=== PATIENT | male | born 1940 | race Caucasian/White ===

== ENCOUNTER → 2017-08-29 | Outpatient (CLI) | payer OTHER ==
--- NOTE | 2017-08-29 16:42 | US ---
EXAMINATION TYPE: US venous doppler duplex LE BI DATE OF EXAM: 08/29/2017 1:21 PM COMPARISON: NONE CLINICAL HISTORY: 76-year-old male I73.9 PVD. Pt states bilateral leg swelling and redness/lump right medial ankle x 2-3 months, pt on blood thinners for heart valve issues SIDE PERFORMED: Bilateral TECHNIQUE: The lower extremity deep venous system is examined utilizing real time linear array sonog marylou with graded compression, doppler sonography and color-flow sonography. FINDINGS: VESSELS IMAGED: External Iliac Vein (EIV) Common Femoral Vein Deep Femoral Vein Greater Saphenous Vein * Femoral Vein Popliteal Vein Small Saphenous Vein * Proximal Calf Veins (* superficial vessels) Right Leg: Negative for DVT, no abnormality visualized at the medial right ankle Left Leg: Negative for DVT IMPRESSION: No evidence for DVT within the bilateral lower extremities imaged from the groin to the upper calves. Also, no specific abnormality seen at the medial aspect of the right ankle at the palpable site.
--- NOTE | 2017-09-06 10:13 | P.ARTDOP ---
Arterial Doppler LOWER EXTREMITY ARTERIAL DOPPLER: DATE OF SERVICE: 08/29/2017 Reason for study: Bilateral leg swelling and pain.. Doppler waveforms: Multiphasic bilaterally throughout. Pulse volume recording: []. Pressure gradients: None. Ankle-brachial indices: Greater than 1 bilaterally. Toe pressures: [] on the right, [] on the left Impression: Normal study.
== END | disposition home or self-care (01) ==
LOC: RADUSWWP 12:52
PROVIDERS: ATTEND Family Medicine
DX: I73.9 Peripheral vascular disease, unspecified (principal); I82.403 Acute embolism and thrombosis of unspecified deep veins of lower extremity, bilateral
CPT/HCPCS: 93922; 93970

== ENCOUNTER 2018-01-30 09:36 | Inpatient (IN) | payer OTHER, MEDICARE ==
[2018-01-30] MEDS ORDERED: IPRATROPIUM-ALBUTEROL 3 ML NEB INHALATION STA (10:08)
--- NOTE | 2018-01-30 10:15 | ED ---
General Adult HPI - General Source: patient, RN notes reviewed Mode of arrival: ambulatory Limitations: no limitations <Harry Burgess - Last Filed: 01/30/18 12:35> <Pradeep Escobar - Last Filed: 01/30/18 12:46> - General Chief complaint: Upper Respiratory Infection Stated complaint: cough, fever Time Seen by Provider: 01/30/18 10:02 - History of Present Illness Initial comments: This is a 77-year-old male presents emergency Department chief complaint of cough, shortness of breath. Patient states that his been sick last couple days as progressively getting worse last 24 hours. 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 Patient states she did call the office to advise him come emergency department secondary to his shortness of breath and fever. Patient states he had a temp of 104 last night. Patient states his cough is productive with brown sputum and states that he has some nasal congestion. He denies any chest pain or pain with deep inspiration. Denies any leg swelling. He states he did do an updraft yesterday states he does not have much improvement. (Harry Burgess) - Related Data Home Medications Medication Instructions Recorded Confirmed Budesonide-Formot 160-4.5 Mcg 2 puff INHALATION RT-BID 03/26/16 01/30/18 [Symbicort 160-4.5 Mcg Inhaler] Donepezil [Aricept] 5 mg PO BID 03/26/16 01/30/18 FLUoxetine HCL [PROzac] 20 mg PO BID 03/26/16 01/30/18 Cholecalciferol (Vitamin D3) 2,000 unit PO BID 01/30/18 01/30/18 [Vitamin D3] Ipratropium-Albuterol Nebulize 3 ml INHALATION RT-QID 01/30/18 01/30/18 [Duoneb 0.5 mg-3 mg/3 ml Soln] Metoprolol Succinate [Toprol Xl] 50 mg PO DAILY 01/30/18 01/30/18 Multivitamin [Men's Multi-Vitamin] 1 tab PO DAILY 01/30/18 01/30/18 predniSONE 10 mg PO DAILY 01/30/18 01/30/18 rOPINIRole HCL [Requip] 1 mg PO TID 01/30/18 01/30/18 Previous Rx's Medication Instructions Recorded Apixaban [Eliquis] 2.5 mg PO BID tablet 03/30/16 Atorvastatin [Lipitor] 80 mg PO HS #30 tab 03/30/16 Doxycycline Monohydrate [Monodox] 100 mg PO Q12HR #10 cap 03/30/16 Lisinopril [Zestril] 5 mg PO DAILY #30 tab 03/30/16 Pantoprazole [Protonix] 40 mg PO AC-CORINNAFST #30 tablet. 03/30/16 Allergies Allergy/AdvReac Type Severity Reaction Status Date / Time No Known Allergies Allergy Verified 01/30/18 10:15 Review of Systems ROS Other: All systems not noted in ROS Statement are negative. <Harry Burgess - Last Filed: 01/30/18 12:35> ROS Other: All systems not noted in ROS Statement are negative. <Pradeep Escobar - Last Filed: 01/30/18 12:46> ROS Statement: Those systems with pertinent positive or pertinent negative responses have been documented in the HPI. Past Medical History Past Medical History: Coronary Artery Disease (CAD), COPD, Dementia, Hearing Disorder / Deafness, Hypertension, Sleep Apnea/CPAP/BIPAP Additional Past Medical History / Comment(s): asbestos exposure, parkinsons, coronary artery disease with previous insertion of coronary stents, obstructive sleep apnea maintained on CPAP pressure 15 cm of water, dementia History of Any Multi-Drug Resistant Organisms: None Reported Past Surgical History: Heart Catheterization With Stent, Hernia Repair, Orthopedic Surgery Additional Past Surgical History / Comment(s): right knee Past Anesthesia/Blood Transfusion Reactions: No Reported Reaction Date of Last Stent Placement:: 2000 Past Psychological History: Anxiety, Depression Smoking Status: Former smoker Past Alcohol Use History: None Reported Past Drug Use History: None Reported - Past Family History Father Family Medical History: Diabetes Mellitus Additional Family Medical History / Comment(s): lung cancer Mother Family Medical History: CVA/TIA <Harry Burgess - Last Filed: 01/30/18 12:35> General Exam Limitations: no limitations General appearance: alert, in no apparent distress Head exam: Present: atraumatic, normocephalic, normal inspection Eye exam: Present: normal appearance, PERRL, EOMI. Absent: scleral icterus, conjunctival injection, periorbital swelling ENT exam: Present: normal exam, normal oropharynx, mucous membranes moist Neck exam: Present: normal inspection. Absent: tenderness, meningismus, lymphadenopathy Respiratory exam: Present: wheezes, decreased breath sounds, other (Pulse ox 90 on 4 L). Absent: normal lung sounds bilaterally, respiratory distress, rales, rhonchi, stridor Cardiovascular Exam: Present: regular rate, normal rhythm, normal heart sounds. Absent: systolic murmur, diastolic murmur, rubs, gallop, clicks Neurological exam: Present: alert, oriented X3, CN II-XII intact Skin exam: Present: warm, dry, intact, normal color. Absent: rash <Harry Burgess - Last Filed: 01/30/18 12:35> Vital Signs 01/30/18 01/30/18 01/30/18 09:57 10:48 10:57 Temperature 99.5 F Pulse Rate 94 74 82 Respiratory 18 18 Rate Blood Pressure 123/75 O2 Sat by Pulse 90 L Oximetry 01/30/18 12:36 Temperature 99.9 F H Pulse Rate 85 Respiratory 20 Rate Blood Pressure 126/62 O2 Sat by Pulse 91 L Oximetry EKG Findings - EKG Comments: EKG Findings:: 11:43 A. fib with a rate of 79 QRS 92 QT/QTC 372/426 <Harry Burgess - Last Filed: 01/30/18 12:35> Medical Decision Making - Lab Data Result diagrams: 01/30/18 10:33 01/30/18 10:33 <Harry Burgess - Last Filed: 01/30/18 12:35> - Lab Data Result diagrams: 01/30/18 10:33 01/30/18 10:33 <Pradeep Escobar - Last Filed: 01/30/18 12:46> - Medical Decision Making 77-year-old male presents from for shortness of breath. He's had a productive cough. CT shows pneumonia and also submental PE. Patient was given Eliquis 10 mg emergency department. He'll be continued on this dose inpatient. Patient will also be started on antibiotics (Harry Burgess) Patient reevaluated by myself, Dr. Escobar. Patient resting comfortable in bed. Decreased breath sounds throughout. I did review and agree with PA findings including all diagnostic interpretations and treatment plan. Computed tomography scan shows pneumonia however is equivocal for pulmonary embolism in the segmental region. Case was discussed in detail with Dr. Zayas, who will admit for this patient. Pulmonary will be placed on consult. Patient was given a additional dose of Eliquis until evaluated by pulmonary. (Pradeep Escobar) - Lab Data Lab Results 01/30/18 01/30/18 01/30/18 Range/Units 10:33 10:33 10:33 WBC 9.7 (3.8-10.6) k/uL RBC 4.66 (4.30-5.90) m/uL Hgb 13.2 (13.0-17.5) gm/dL Hct 40.0 (39.0-53.0) % MCV 85.8 (80.0-100.0) fL MCH 28.3 (25.0-35.0) pg MCHC 33.0 (31.0-37.0) g/dL RDW 14.5 (11.5-15.5) % Plt Count 167 (150-450) k/uL Neutrophils % 82 % Lymphocytes % 9 % Monocytes % 6 % Eosinophils % 0 % Basophils % 1 % Neutrophils # 7.9 H (1.3-7.7) k/uL Lymphocytes # 0.8 L (1.0-4.8) k/uL Monocytes # 0.6 (0-1.0) k/uL Eosinophils # 0.0 (0-0.7) k/uL Basophils # 0.1 (0-0.2) k/uL PT (9.0-12.0) sec INR (<1.2) APTT (22.0-30.0) sec Sodium 137 (137-145) mmol/L Potassium 4.1 (3.5-5.1) mmol/L Chloride 102 (98-107) mmol/L Carbon Dioxide 28 (22-30) mmol/L Anion Gap 7 mmol/L BUN 13 (9-20) mg/dL Creatinine 0.82 (0.66-1.25) mg/dL Est GFR (CKD-EPI)AfAm >90 (>60 ml/min/1.73 sqM) Est GFR (CKD-EPI)NonAf 87 (>60 ml/min/1.73 sqM) Glucose 150 H (74-99) mg/dL Calcium 8.6 (8.4-10.2) mg/dL Magnesium (1.6-2.3) mg/dL Total Bilirubin 1.2 (0.2-1.3) mg/dL AST 21 (17-59) U/L ALT 37 (21-72) U/L Alkaline Phosphatase 77 (38-126) U/L Total Creatine Kinase 140 (55-170) U/L CK-MB (CK-2) 0.5 (0.0-2.4) ng/mL CK-MB (CK-2) Rel Index 0.4 Troponin I <0.012 (0.000-0.034) ng/mL Total Protein 5.9 L (6.3-8.2) g/dL Albumin 3.6 (3.5-5.0) g/dL 01/30/18 01/30/18 Range/Units 10:33 10:33 WBC (3.8-10.6) k/uL RBC (4.30-5.90) m/uL Hgb (13.0-17.5) gm/dL Hct (39.0-53.0) % MCV (80.0-100.0) fL MCH (25.0-35.0) pg MCHC (31.0-37.0) g/dL RDW (11.5-15.5) % Plt Count (150-450) k/uL Neutrophils % % Lymphocytes % % Monocytes % % Eosinophils % % Basophils % % Neutrophils # (1.3-7.7) k/uL Lymphocytes # (1.0-4.8) k/uL Monocytes # (0-1.0) k/uL Eosinophils # (0-0.7) k/uL Basophils # (0-0.2) k/uL PT 11.3 (9.0-12.0) sec INR 1.2 H (<1.2) APTT 26.8 (22.0-30.0) sec Sodium (137-145) mmol/L Potassium (3.5-5.1) mmol/L Chloride (98-107) mmol/L Carbon Dioxide (22-30) mmol/L Anion Gap mmol/L BUN (9-20) mg/dL Creatinine (0.66-1.25) mg/dL Est GFR (CKD-EPI)AfAm (>60 ml/min/1.73 sqM) Est GFR (CKD-EPI)NonAf (>60 ml/min/1.73 sqM) Glucose (74-99) mg/dL Calcium (8.4-10.2) mg/dL Magnesium 1.7 (1.6-2.3) mg/dL Total Bilirubin (0.2-1.3) mg/dL AST (17-59) U/L ALT (21-72) U/L Alkaline Phosphatase (38-126) U/L Total Creatine Kinase (55-170) U/L CK-MB (CK-2) (0.0-2.4) ng/mL CK-MB (CK-2) Rel Index Troponin I (0.000-0.034) ng/mL Total Protein (6.3-8.2) g/dL Albumin (3.5-5.0) g/dL Disposition <Harry Burgess - Last Filed: 01/30/18 12:35> <Pradeep Escobar - Last Filed: 01/30/18 12:46> Clinical Impression: Pneumonia, COPD exacerbation, Pulmonary embolism Disposition: ADMITTED IP TO THIS HOSP Condition: Stable Referrals: [facility],Clinic [Primary Care Provider] - 1-2 days
[2018-01-30 10:47] LABS: Basophils # (A) 0.1 k/uL (0-0.2); Basophils % (A) 1 %; Eosinophils % (A) 0 %; HGB 13.2 gm/dL (13.0-17.5); Lymphocytes # (A) 0.8 k/uL (1.0-4.8); Lymphocytes % (A) 9 %; MCH 28.3 pg (25.0-35.0); MCV 85.8 fL (80.0-100.0); Mean Platelet Volume 7.9; Monocytes # (A) 0.6 k/uL (0-1.0); Monocytes % (A) 6 %; Neutrophils # (A) 7.9 k/uL (1.3-7.7); Neutrophils % (A) 82 %; Platelet Count 167 k/uL (150-450); RBC 4.66 m/uL (4.30-5.90); RDW 14.5 % (11.5-15.5); WBC 9.7 k/uL (3.8-10.6)
--- NOTE | 2018-01-30 10:53 | XR ---
EXAMINATION TYPE: XR chest 2V DATE OF EXAM: 01/30/2018 COMPARISON: 03/28/2016 HISTORY: 77-year-old male difficulty breathing, fever and cough TECHNIQUE: PA and lateral views FINDINGS: Heart borderline enlarged. Calcified pleural plaques bilaterally. Suggest note pleural lines in the u pper lungs. Basilar atelectasis at the lung bases. No pleural effusion. IMPRESSION: 1. Unable to exclude small bilateral pneumothoraces. Further clinical correlation is recommended. Con trast-enhanced CT can be considered. 2. COPD and asbestos related pleural disease. There are extensive pleural-parenchymal opacities which appear largely chronic.
[2018-01-30 10:55] LABS: INR 1.2 (<1.2); Partial Thromboplastin Time 26.8 sec (22.0-30.0); Prothrombin Time 11.3 sec (9.0-12.0)
[2018-01-30 10:56] LABS: ALT 37 U/L (21-72); AST 21 U/L (17-59); Albumin 3.6 g/dL (3.5-5.0); Alkaline Phosphatase 77 U/L (38-126); Anion Gap 7 mmol/L; Blood Urea Nitrogen 13 mg/dL (9-20); Calcium 8.6 mg/dL (8.4-10.2); Carbon Dioxide 28 mmol/L (22-30); Chloride 102 mmol/L (98-107); Glucose 150 mg/dL (74-99); Potassium 4.1 mmol/L (3.5-5.1); Sodium 137 mmol/L (137-145); Total Bilirubin 1.2 mg/dL (0.2-1.3); Total Protein 5.9 g/dL (6.3-8.2)
[2018-01-30 11:08] LABS: Creatine Kinase 140 U/L (55-170)
[2018-01-30 11:20] LABS: Creatine Kinase MB 0.5 ng/mL (0.0-2.4); Troponin I <0.012 ng/mL (0.000-0.034)
--- NOTE | 2018-01-30 11:54 | CT ---
EXAMINATION TYPE: CT chest angio for PE DATE OF EXAM: 01/30/2018 COMPARISON: NONE HISTORY: Difficulty breathing, coughed up blood after breathing treatment CT DLP: 781.9 mGycm. Automated Exposure Control for Dose Reduction was Utilized. CONTRAST: CTA scan of the thorax is performed with IV Contrast, patient injected with 100 mL of Isovue 370, pul monary embolism protocol. MIP Images are created on CT scanner and reviewed. FINDINGS: LUNGS: Extensive bilateral calcific pleural plaquing is seen in addition to bibasilar airspace diseas e, left greater than right. Right basilar airspace disease appears as atelectasis and left basilar ai rspace disease is concerning for pneumonia, specifically within the lingula on series 5 image 92 and series 4 and image 92 as there are areas of low density on soft tissue windows and air bronchograms. Focal pleural thickening along the anterior right lung base is seen on series 4 image 99 and series 7 image 18 measuring up to 1.3 cm in greatest thickness. MEDIASTINUM: Bolus is suboptimal secondary to suboptimal bolus timing and admixing of contrast. There is no central pulmonary embolus identified within the main pulmonary artery, right main, or left brendan n pulmonary artery, however evaluation of the subsegmental and segmental pulmonary arteries are extre elie limited. There are questioned pulmonary emboli within the right lower lobe such as on series 4 i mage 88 and 89 within segmental branches. There are no greater than 1 cm hilar or mediastinal lymph nodes. No cardiomegaly or pericardial effusion is seen. Extensive coronary artery calcifications/po ssible prior stent are noted, partially obscured by motion artifact. OTHER: Moderate multilevel degenerative changes of the thoracic spine are noted. Multiple paraesophag eal lymph nodes are best seen on the coronal images such as series 7 image 31. These measure up to 1. 0 cm in short axis. IMPRESSION: 1. No central pulmonary embolus. Findings are equivocal for segmental pulmonary emboli to the right l ower lobe. Treatment could be initiated and repeat short-term scan could be performed after hydration and 12 hours. 2. Findings suspicious for lingular and left basilar pneumonia. 3. 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 Surveillance is recommended for a focal area of pleural thickening along the anterior right lower lobe as this could represent ea rly mesothelioma. 4. Multiple paraesophageal lymph nodes. These are nonspecific and could be reactive although endoscop y could be performed to evaluate for esophageal neoplasm. No obstructing neoplasm is identified.
[2018-01-30] MEDS ORDERED: APIXABAN 5 MG TAB PO STA (12:03)
[2018-01-30] MEDS ORDERED: LEVOFLOXACIN 750MG-D5W PMX 750 MG in DEXTROSE/WATER 1 150ML.BAG IVPB STA (12:37)
[2018-01-30] MEDS ORDERED: PNEUMONIA PROTOCOL UTILIZED 1 EACH MISC PO PRN (12:37)
[2018-01-30] MEDS ORDERED: IPRATROPIUM-ALBUTEROL 3 ML NEB INHALATION PRN (12:37)
[2018-01-30] MEDS ORDERED: methylPREDNISolone SOD SUCCI 125 MG/2 ML VIAL IV STA (12:38)
[2018-01-30] MEDS: INSULIN ASPART 100 UNIT/ML 1 ML 10 ML VIAL SQ SCH (20:54)
--- NOTE | 2018-01-30 21:16 | HP ---
HISTORY AND PHYSICAL DATE OF SERVICE: 01/30/2018 CHIEF COMPLAINT: Cough and sputum and fever. HISTORY OF PRESENT ILLNESS: This 77-year-old gentleman with a past medical history of multiple medical problems and COPD, CVA, dementia and hypertension, sleep apnea, asbestos exposure, anxiety, depression being followed by the [facility] in the outpatient setting was not feeling well over the past several days. Patient had cough with yellow sputum and fever. The patient came to [facility], pneumonia was suspected and the patient was also seeing Dr. Corrales for possible asbestosis and chronic hypoxic respiratory failure. The patient underwent a chest CT also which showed multiple findings including suspicious segmental pulmonary embolism in the right lower lobe and as well as lingular and left basilar pneumonia. Extreme pleural plaquing was also noted and multifocal was also noted. The patient was admitted for further evaluation and treatment. Multiple abnormalities in the above CT scan was noted. There is no history of any rigors. No history of headache, loss of consciousness, seizures at this time. PAST MEDICAL HISTORY: History of asbestosis, CAD, COPD, dementia, history of hearing deficit, hypertension, history of chronic hypoxic respiratory failure, history of anxiety/depression. MEDICATIONS: Prior to admission include home medications are: 1. Prednisone 10 mg p.o. daily. 2. Multivitamins 1 p.o. daily. 3. Vitamin D3 2000 b.i.d. 4. Requip 1 mg p.o. t.i.d. 5. Protonix 40 mg daily with breakfast. 6. Toprol-XL 50 mg p.o. daily. 7. Zestril 5 mg p.o. daily. 8. DuoNeb q.i.d. 9. Prozac 20 mg p.o. b.i.d. 10.Monodex 100 mg p.o. b.i.d. 11.Aricept 5 mg p.o. b.i.d. 12.Symbicort 160/4.5 two puffs b.i.d. 13.Lipitor 80 mg q.h.s. 14.Eliquis 2.5 mg p.o. b.i.d. ALLERGIES: None. FAMILY HISTORY: History of diabetes and colon cancer in the family. SOCIAL HISTORY: Previous history of smoking. No history of alcohol intake. REVIEW OF SYSTEMS: ENT: No diminished hearing or vision. CARDIOVASCULAR: As mentioned earlier. RESPIRATORY: As mentioned earlier. Respirations: As mentioned earlier. GI: No nausea or vomiting. : No dysuria or hematuria. Nervous system: No numbness or weakness. Allergy/Immunology: No asthma or hayfever. MUSCULOSKELETAL: As mentioned earlier. HEMATOLOGY/ONCOLOGY: No history of anemia. ENDOCRINE: No history of diabetes or hypothyroidism. CONSTITUTIONAL: As mentioned earlier. Dermatology: Negative. Rheumatology: Negative. Psychiatry: As mentioned earlier. PHYSICAL EXAMINATION: Alert and oriented x3. Pulse 90, blood pressure 176/121, respiration 20. Temp is normal. Pulse ox 99% on 4 L. HEENT is conjunctivae normal. Oral mucosa moist. Neck is no jugular venous distention. No carotid bruit. No lymph node enlargement. Cardiovascular system: S1, S2 muffled. No S3, no S4. RESPIRATORY: Breath sounds diminished in the bases. Bilateral scattered rhonchi and expiratory wheezing also present. ABDOMEN: Soft, nontender. No mass palpable. Legs: No edema and no swelling. Nervous system: Higher functions as mentioned earlier. Moves all 4 limbs. No focal motor or sensory deficits. LYMPHATICS: No lymph nodes palpable in the neck and axilla or groin. Skin: No ulcers. No rashes and no bleeding. LAB STUDIES: At this time shows the WBC 9.2, hemoglobin 13.2, and INR 1.2. Glucose 150. ASSESSMENT: 1. Chronic obstructive pulmonary disease acute exacerbation with left lingular pneumonia possibly gram-negative. 2. Possible right pulmonary embolism, equivocal. 3. History of deep vein thrombosis of the leg. 4. History of coronary artery disease. 5. Chronic obstructive pulmonary disease. 6. Dementia. 7. Hard of hearing. 8. Hypertension. 9. Sleep apnea. 10.History of Parkinson's. 11.Asbestosis and pleural plaques. 12.History of coronary artery disease/stent. 13.Obstructive sleep apnea. On CPAP. 14.Chronic hypoxic respiratory failure. 15.History of anxiety, depression. 16.History of atrial fibrillation. RECOMMENDATIONS AND DISCUSSION: In this 77-year-old gentleman who presented with multiple complex medical issues , we will monitor the patient closely. Continue the current medications, management and continue symptomatic treatment. Continue with broad-spectrum IV antibiotics. I would recommend Rocephin and Zithromax and I would also recommend pulmonary consultation. Optimize bronchodilator treatment with steroids. Monitor blood sugars closely. Resume the home medications. Continue with Eliquis. Guarded prognosis because of multiple complex medical issues. Further recommendations to follow and copy of dictation being forwarded to Dr. Badillo who is the primary physician. MMCHANELL / IJN: [id number] / MTDD
[2018-01-30] MEDS: methylPREDNISolone SOD SUCCI 125 MG/2 ML VIAL IV SCH ×2 (21:24→23:44)
[2018-01-30] MEDS: cefTRIAXone IN SWFI 1,000 MG/10 ML SYRINGE IVP SCH (21:27)
[2018-01-30] MEDS: AZITHROMYCIN 500 MG in DEXTROSE 5% IN WATER 250 ML IVPB SCH ×2 (21:29)
[2018-01-30] MEDS: CHOLECALCIFEROL 1,000 UNIT TAB PO SCH (21:35)
[2018-01-30] MEDS: DONEPEZIL 5 MG TAB PO SCH (21:35)
[2018-01-30] MEDS: APIXABAN 5 MG TAB PO SCH (21:35)
[2018-01-30] MEDS: ATORVASTATIN 80 MG TAB PO SCH (21:36)
[2018-01-30] MEDS: FLUoxetine HCL 20 MG CAP PO SCH (21:39)
[2018-01-31 00:52] LABS: Appearance,Urine Clear (Clear); Bilirubin,Urine Negative (Negative); Blood,Urine Negative (Negative); Color,Urine Yellow; Glucose,Urine (UA) 4+ (Negative); Ketones,Urine Trace (Negative); Leukocyte Esterase,Urine Negative (Negative); Nitrite,Urine Negative (Negative); Protein,Urine Trace (Negative); Specific Gravity,Urine 1.034 (1.001-1.035); Urobilinogen,Urine <2.0 mg/dL (<2.0)
[2018-01-31 02:19] LABS: Hemoglobin A1C 4.5 % (4.0-6.0)
[2018-01-31 05:42] LABS: Glucose,Whole Blood 197 mg/dL (75-99)
[2018-01-31] MEDS: methylPREDNISolone SOD SUCCI 125 MG/2 ML VIAL IV SCH ×2 (05:45→12:32)
[2018-01-31] MEDS: PANTOPRAZOLE 40 MG TABLET PO SCH (05:50)
[2018-01-31] MEDS: INSULIN ASPART 100 UNIT/ML 1 ML 10 ML VIAL SQ SCH ×4 (06:32→21:39)
[2018-01-31 07:22] LABS: Basophils % (A) 0 %; Eosinophils % (A) 0 %; HCT 43.8 % (39.0-53.0); HGB 13.9 gm/dL (13.0-17.5); Lymphocytes # (A) 0.7 k/uL (1.0-4.8); Lymphocytes % (A) 7 %; MCH 28.1 pg (25.0-35.0); MCHC 31.8 g/dL (31.0-37.0); MCV 88.3 fL (80.0-100.0); Mean Platelet Volume 7.9; Monocytes # (A) 0.3 k/uL (0-1.0); Monocytes % (A) 3 %; Neutrophils # (A) 9.8 k/uL (1.3-7.7); Neutrophils % (A) 89 %; Platelet Count 183 k/uL (150-450); RBC 4.96 m/uL (4.30-5.90); RDW 14.3 % (11.5-15.5)
[2018-01-31] MEDS: IPRATROPIUM-ALBUTEROL 3 ML NEB INHALATION SCH ×4 (07:40→20:24)
[2018-01-31 07:41] LABS: Anion Gap 9 mmol/L; Blood Urea Nitrogen 18 mg/dL (9-20); Calcium 9.3 mg/dL (8.4-10.2); Carbon Dioxide 26 mmol/L (22-30); Chloride 102 mmol/L (98-107); Glucose 205 mg/dL (74-99); Potassium 4.3 mmol/L (3.5-5.1); Sodium 137 mmol/L (137-145)
[2018-01-31] MEDS: SYMBICORT 160-4.5 MCG INHALER INHALATION SCH ×2 (07:41→20:25)
[2018-01-31 08:16] VITALS: RESP 18
[2018-01-31] MEDS ORDERED: LEVOFLOXACIN 750MG-D5W PMX 750 MG in DEXTROSE/WATER 1 150ML.BAG IVPB SCH (09:00)
[2018-01-31] MEDS: METOPROLOL SUCCINATE (ER) 50 MG TAB.ER.24H PO SCH (09:13)
[2018-01-31] MEDS: FLUoxetine HCL 20 MG CAP PO SCH (09:13)
[2018-01-31] MEDS: APIXABAN 5 MG TAB PO SCH ×2 (09:13→20:13)
[2018-01-31] MEDS: DONEPEZIL 5 MG TAB PO SCH ×2 (09:13→20:14)
[2018-01-31] MEDS: LISINOPRIL 5 MG TAB PO SCH (09:13)
[2018-01-31] MEDS: CHOLECALCIFEROL 1,000 UNIT TAB PO SCH ×2 (09:13→20:14)
[2018-01-31] MEDS: cefTRIAXone IN SWFI 1,000 MG/10 ML SYRINGE IVP SCH (09:55)
[2018-01-31] MEDS: AZITHROMYCIN 500 MG in DEXTROSE 5% IN WATER 250 ML IVPB SCH ×2 (09:59)
[2018-01-31] MEDS ORDERED: FLUoxetine HCL 20 MG CAP PO ONE (10:15)
[2018-01-31 11:11] LABS: Glucose,Whole Blood 249 mg/dL (75-99)
[2018-01-31] MEDS: MULTIVITAMINS, THERA 1 EACH TAB PO SCH (12:32)
--- NOTE | 2018-01-31 13:01 | P.CNPUL ---
History of Present Illness Consult date: 01/31/18 Requesting physician: Celsa Zayas Reason for consult: dyspnea, abnormal CXR/CT Chief complaint: Shortness of breath, cough, fever History of present illness: This is a very pleasant 77-year-old gentleman who follows with the [facility] for his primary care needs. He has a history of chronic atrial fibrillation anticoagulated with Eliquis, Parkinson's disease, anxiety/depression, hearing disorder, hypertension, coronary artery disease. 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 He follows with Dr. Corrales in our office for the same and was last seen there on 01/16/2018 in follow-up. At that time he was doing quite well here no worsening pulmonary complaints. Approximately 2 days ago he started feeling quite short of breath. He was coughing up some mucus that was blood-tinged and green. He developed a fever of 104. He presented here to the emergency room yesterday. CT angiogram was performed. There were no central pulmonary embolus. There were some equivocal subsegmental emboli of the right lower lobe. The patient again has been on Eliquis in the outpatient setting. There is also suspicious lingular and left basilar pneumonia. There is an extensive pleural plaque outside sales representative of asbestos exposure. There is focal area of pleural thickening along the anterior right lower lobe that could represent early mesothelioma. There is also noted multiple paraesophageal lymph nodes are considered nonspecific and possibly reactive though esophageal neoplasm could not be ruled out. Blood culture reveals no growth to date. White count 9.7. Hemoglobin 13.2. Creatinine 0.82. He had a T-max of 99.9. He is seen today in consultation on the selective care unit. He is awake and alert in no acute distress. He states he is already breathing a little better today as compared to the last 2 days. He is maintaining O2 saturations in the 90s on 5 L/m per nasal cannula. He's been afebrile today. Hemodynamically stable. Continues with a productive cough of green blood-tinged sputum. Sample is pending. He has been initiated on DuoNeb inhalations, Symbicort, IV Solu-Medrol, antibiotics in the form of ceftriaxone and azithromycin. Review of Systems Constitutional: Reports fatigue, Reports poor appetite, Reports weakness Eyes: denies blurred vision, denies decreased vision Ears: bilateral: decreased hearing Ears, nose, mouth and throat: Reports hoarseness, Reports nasal congestion Cardiovascular: Reports dyspnea on exertion, Reports irregular heart beat, Reports shortness of breath Respiratory: Reports congestion, Reports cough with sputum, Reports dyspnea, Reports hemoptysis, Reports home oxygen, Reports sleep apnea, Reports wheezing Gastrointestinal: Denies abdominal pain, Denies diarrhea, Denies nausea, Denies vomiting Genitourinary: Reports as per HPI Musculoskeletal: Denies myalgias Integumentary: Reports color changes Neurological: Reports balance difficulties, Reports weakness Psychiatric: Reports anxiety Endocrine: Denies fatigue, Denies weight change Hematologic/Lymphatic: Reports as per HPI Allergic/Immunologic: Reports as per HPI Past Medical History Past Medical History: Coronary Artery Disease (CAD), COPD, Dementia, Hearing Disorder / Deafness, Hypertension, Sleep Apnea/CPAP/BIPAP Additional Past Medical History / Comment(s): asbestos exposure, parkinsons, coronary artery disease with previous insertion of coronary stents, obstructive sleep apnea maintained on CPAP pressure 15 cm of water,iqug[place]ut, o2 4 liters n/c, cataracts,past detatched retina lt eye(sx) History of Any Multi-Drug Resistant Organisms: None Reported Past Surgical History: Heart Catheterization With Stent, Hernia Repair, Orthopedic Surgery Additional Past Surgical History / Comment(s): right knee ,lt eye repair of detatched retina Past Anesthesia/Blood Transfusion Reactions: No Reported Reaction Date of Last Stent Placement:: 2000 Smoking Status: Former smoker - Past Family History Father Family Medical History: Diabetes Mellitus Additional Family Medical History / Comment(s): lung cancer Mother Family Medical History: CVA/TIA Medications and Allergies Home Medications Medication Instructions Recorded Confirmed Type Budesonide-Formot 160-4.5 Mcg 2 puff INHALATION RT-BID 03/26/16 01/30/18 History [Symbicort 160-4.5 Mcg Inhaler] Donepezil [Aricept] 5 mg PO BID 03/26/16 01/30/18 History FLUoxetine HCL [PROzac] 20 mg PO BID 03/26/16 01/30/18 History Apixaban [Eliquis] 2.5 mg PO BID tablet 03/30/16 01/30/18 Rx Atorvastatin [Lipitor] 80 mg PO HS #30 tab 03/30/16 01/30/18 Rx Doxycycline Monohydrate [Monodox] 100 mg PO Q12HR #10 cap 03/30/16 01/30/18 Rx Lisinopril [Zestril] 5 mg PO DAILY #30 tab 03/30/16 01/30/18 Rx Pantoprazole [Protonix] 40 mg PO AC-TRINIDADKFST #30 tablet.dr 03/30/16 01/30/18 Rx Cholecalciferol (Vitamin D3) 2,000 unit PO BID 01/30/18 01/30/18 History [Vitamin D3] Ipratropium-Albuterol Nebulize 3 ml INHALATION RT-QID 01/30/18 01/30/18 History [Duoneb 0.5 mg-3 mg/3 ml Soln] Metoprolol Succinate [Toprol Xl] 50 mg PO DAILY 01/30/18 01/30/18 History Multivitamin [Men's Multi-Vitamin] 1 tab PO DAILY 01/30/18 01/30/18 History predniSONE 10 mg PO DAILY 01/30/18 01/30/18 History rOPINIRole HCL [Requip] 1 mg PO TID 01/30/18 01/30/18 History Allergies Allergy/AdvReac Type Severity Reaction Status Date / Time No Known Allergies Allergy Verified 01/30/18 10:15 Physical Exam Vitals: Vital Signs Temp Pulse Pulse Resp BP BP Pulse Ox 01/31/18 12:07 82 01/31/18 11:58 86 01/31/18 11:21 97.3 F L 83 18 121/66 91 L 01/31/18 07:55 97.7 F 88 82 18 137/72 92 L 01/31/18 07:44 84 91 L 01/31/18 04:00 98.6 F 87 19 131/78 90 L 01/31/18 00:00 98.9 F 85 20 137/63 91 L 01/30/18 20:00 98.5 F 87 20 121/56 90 L 01/30/18 18:38 90 20 117/61 91 L 01/30/18 15:54 80 01/30/18 15:42 88 L 01/30/18 15:36 80 01/30/18 15:29 79 20 121/66 88 L 01/30/18 13:30 75 18 118/57 91 L 01/30/18 12:36 99.9 F H 85 20 126/62 91 L Intake and Output 01/30/18 01/31/18 01/31/18 22:59 06:59 14:59 Intake Total 375 740 Output Total 300 Balance 75 740 Intake: Intake, IV Titration 250 250 Amount Azithromycin 500 mg In 250 250 Dextrose 5% in Water 250 ml @ 125 mls/hr IVPB DAILY [facility] Rx#:[id number] Oral 125 490 Output: Urine 300 Other: # Voids 1 Weight 123.1 kg - Constitutional General appearance: cooperative, obese - EENT Eyes: EOMI, PERRLA ENT: hard of hearing Ears: bilateral: normal - Neck Carotids: bilateral: upstroke normal Thyroid: bilateral: normal size - Respiratory Respiratory: bilateral: diminished, rales, rhonchi, prolonged expiration - Cardiovascular Rhythm: irregularly irregular Heart sounds: normal: S1, S2 - Gastrointestinal General gastrointestinal: normal bowel sounds - Integumentary Integumentary: decreased turgor - Neurologic Neurologic: CNII-XII intact - Musculoskeletal Musculoskeletal: generalized weakness - Psychiatric Psychiatric: A&O x's 3 Results - Laboratory Findings CBC and BMP: 01/31/18 06:20 01/31/18 06:20 PT/INR, D-dimer PT 11.3 sec (9.0-12.0) 01/30/18 10:33 INR 1.2 (<1.2) H 01/30/18 10:33 Abnormal lab findings: Abnormal Labs 01/30/18 01/30/18 01/30/18 10:33 10:33 10:33 WBC Neutrophils # 7.9 H Lymphocytes # 0.8 L INR 1.2 H Glucose 150 H POC Glucose (mg/dL) Total Protein 5.9 L Urine Protein Urine Glucose (UA) Urine Ketones 01/31/18 01/31/18 01/31/18 00:25 05:41 06:20 WBC 11.0 H Neutrophils # 9.8 H Lymphocytes # 0.7 L INR Glucose POC Glucose (mg/dL) 197 H Total Protein Urine Protein Trace H Urine Glucose (UA) 4+ H Urine Ketones Trace H 01/31/18 01/31/18 06:20 11:09 WBC Neutrophils # Lymphocytes # INR Glucose 205 H POC Glucose (mg/dL) 249 H Total Protein Urine Protein Urine Glucose (UA) Urine Ketones - Diagnostic Findings Chest x-ray: image reviewed Assessment and Plan Assessment: Impression: #1 Acute on chronic hypoxic respiratory failure secondary to an acute left lingular and basilar pneumonia, acute exacerbation of chronic obstructive pulmonary disease. #2 Acute exacerbation of chronic obstructive pulmonary disease, complicated by left lower lobe pneumonia. Maintained on home oxygen at 4-4.5 L/m in the outpatient setting. #3 Obstructive sleep apnea maintained on CPAP at 13 cm of water in the outpatient setting. #[address] angiogram revealing extensive pleural plaques outside sales representative of prior expresses exposure. There is also focal areas of pleural thickening along the anterior right lower lobe which could represent early mesothelioma. #5 Equivocal findings of subsegmental pulmonary emboli in the right lower lobe. The patient has been on Eliquis in the outpatient setting. #6 Multiple esophageal lymph nodes suspect nonspecific and reactive although esophageal neoplasm is not ruled out. #7 Chronic atrial fibrillation, anticoagulated with Eliquis in outpatient setting. #8 Coronary artery disease. #9 Parkinson's disease. #10 Hypertension. #11 Obesity. #12 Poor overall functional performance based on the above-mentioned multiple comorbidities. Plan: The patient was seen and evaluated by Dr. Goodwin. Chest x-ray, computed tomography scan and labs were all reviewed. Doubt pulmonary emboli. The patient is on Eliquis and is now on a higher dose at 10 mg twice a day. We'll continue with this treatment for acute left lung pneumonia including antibiotics in the form of Rocephin and azithromycin. Await sputum culture results. Continue DuoNeb inhalations, IV Solu-Medrol, Symbicort. He will follow up with Dr. Corrales in the outpatient setting regarding the computed tomography scan findings in regards to the possible early mesothelioma. We will increase his activity as tolerated. Repeat a chest x-ray in the a.m. We' ll continue to follow and make further recommendations based on his clinical status. I, the cosigning physician, performed a history & physical examination of the patient. Lungs sounds with few scattered rhonchi, end expiratory wheeze. Diminished. Maintaining good O2 saturations in the 90s on 2 L/m per nasal cannula. I discussed the assessment and plan of care with my nurse practitioner , Divine Ocasio. I attest to the above note as dictated by her. Time with Patient: Greater than 30
--- NOTE | 2018-01-31 13:52 | XR ---
EXAMINATION TYPE: XR chest 2V DATE OF EXAM: 01/31/2018 COMPARISON: Prior chest x-ray and chest CT 01/30/2018 HISTORY: Pneumonia, abnormal chest x-ray, COPD TECHNIQUE: Frontal and lateral views of the chest on 4 images are obtained. FINDINGS: Calcified pleural plaques are again noted. There is increased AP diameter chest. Cardiomed iastinal silhouette, pulmonary vascularity and marixa are stable. Interstitium is increased. Patchy bas ilar density again noted. No pneumothorax or pleural effusion. IMPRESSION: Correlate for asbestos related disease. Prominent pulmonary artery could be due to pulmo nary artery hypertension. Increased density at the lung bases may be due to atelectasis or scar rathe r than pneumonia.
[2018-01-31 16:26] LABS: Glucose,Whole Blood 231 mg/dL (75-99)
--- NOTE | 2018-01-31 16:41 | PN ---
PROGRESS NOTE DATE OF SERVICE: 01/31/2018 This 77-year-old gentleman who was admitted with COPD, acute exacerbation, as well as possible pneumonia had a possible PE as well. The patient is being closely monitored at this time. The patient is feeling slightly better. Pulmonary Dr. Goodwin is following the patient closely. No chest pain. No palpitations. Patient is on a high dose of Eliquis at this time. Past medical history reviewed. REVIEW OF SYSTEMS: CARDIOVASCULAR SYSTEM: No angina, palpitations. RESPIRATORY SYSTEM: As mentioned earlier. GI: As mentioned earlier. : No dysuria or retention. NERVOUS SYSTEM: No numbness, weakness. CURRENT MEDICATIONS: Current medications are reviewed and include: 1. DuoNeb q.i.d. and p.r.n. 2. Eliquis 10 mg p.o. b.i.d. 3. Lipitor 80 mg at bedtime. 4. Zithromax 500 mg p.o. daily. 5. Symbicort 160/4.5 two puffs b.i.d. 6. Rocephin 2 grams daily. 7. Vitamin D3 2000 units. 8. Aricept 5 mg p.o. b.i.d. 9. Prozac 40 mg daily. 10.NovoLog scale. 11.Zestril 5 mg p.o. daily. 12.Solu-Medrol 60 IV q.6. 13.Toprol XL 50 mg p.o. daily. 14.Multivitamins 1 p.o. daily. 15.Protonix 40 mg daily. 16.Requip 1 mg p.o. t.i.d. PHYSICAL EXAMINATION: Patient is alert, oriented x3. Pulse 83, blood pressure 120/66, respiration 18, temperature 97.3, pulse ox 91% on 5 L. HEENT: Conjunctivae normal. Oral mucosa moist. NECK: No jugular venous distention. No carotid bruit. No lymph node enlargement. CARDIOVASCULAR SYSTEM: S1, S2 muffled. RESPIRATORY SYSTEM: Breath sounds diminished at the bases. A few scattered rhonchi and crackles. Expiratory wheezing. ABDOMEN: Soft, non-tender. No mass palpable. Obese. LEGS: No edema. No swelling. NERVOUS SYSTEM: No focal deficit. LABS: CBC WBC 11, hemoglobin 13.9. Sodium 137. Other labs are noted. ASSESSMENT: 1. Chronic obstructive pulmonary disease, acute exacerbation, with acute left lingular pneumonia, possibly gram-negative. 2. Possible right pulmonary embolism. 3. On high dose of Eliquis. 4. History of deep venous thrombosis of the leg. 5. History of coronary artery disease. 6. Chronic obstructive pulmonary disease. 7. Dementia. 8. Hard of hearing. 9. Hypertension. 10.Sleep apnea. 11.History of Parkinson's. 12.History of asbestosis and pleural plaques. 13.History of coronary artery disease and stent. 14.Obstructive sleep apnea, CPAP. 15.Chronic hypoxic respiratory failure. 16.History of anxiety, depression. 17.History of atrial fibrillation. RECOMMENDATIONS AND DISCUSSION: I recommend to continue current medication, continue with the monitoring, symptomatic treatment. Otherwise at this time I would recommend closely monitor. Continue with antibiotics. I would recommend tapering of the steroids at this time. Closely follow with Pulmonary. Continue with high dose of Eliquis because of concerns for PE. Overall prognosis guarded because of multiple complex medical issues. Patient still has mucopurulent sputum. Further recommendations to follow. MMODL / IJN: [id number] /
[2018-01-31] MEDS: methylPREDNISolone SOD SUCCI 40 MG/ML 1 ML VIAL IV SCH (20:13)
[2018-01-31] MEDS: ATORVASTATIN 80 MG TAB PO SCH (20:14)
[2018-01-31 20:53] LABS: Glucose,Whole Blood 254 mg/dL (75-99)
[2018-02-01 05:56] LABS: Glucose,Whole Blood 188 mg/dL (75-99)
[2018-02-01 06:09] LABS: Basophils % (A) 0 %; Eosinophils % (A) 0 %; HCT 39.4 % (39.0-53.0); HGB 12.5 gm/dL (13.0-17.5); Lymphocytes # (A) 0.6 k/uL (1.0-4.8); Lymphocytes % (A) 5 %; MCH 28.2 pg (25.0-35.0); MCHC 31.7 g/dL (31.0-37.0); MCV 88.9 fL (80.0-100.0); Mean Platelet Volume 7.7; Monocytes # (A) 0.8 k/uL (0-1.0); Monocytes % (A) 6 %; Neutrophils # (A) 11.9 k/uL (1.3-7.7); Neutrophils % (A) 88 %; Platelet Count 189 k/uL (150-450); RBC 4.43 m/uL (4.30-5.90); RDW 15.2 % (11.5-15.5); WBC 13.6 k/uL (3.8-10.6)
[2018-02-01 06:19] LABS: Anion Gap 9 mmol/L; Blood Urea Nitrogen 22 mg/dL (9-20); Carbon Dioxide 25 mmol/L (22-30); Chloride 104 mmol/L (98-107); Glucose 213 mg/dL (74-99); Potassium 4.6 mmol/L (3.5-5.1); Sodium 138 mmol/L (137-145)
[2018-02-01] MEDS: INSULIN ASPART 100 UNIT/ML 1 ML 10 ML VIAL SQ SCH ×4 (06:40→21:48)
--- NOTE | 2018-02-01 07:45 | XR ---
EXAMINATION TYPE: XR chest 1V portable DATE OF EXAM: 02/01/2018 COMPARISON: Prior chest 01/31/2018 HISTORY: Left lower lobe pneumonia TECHNIQUE: Single frontal view of the chest is obtained. FINDINGS: Findings are similar to prior exam. IMPRESSION: Findings could represent atelectasis or scarring, asbestos related disease, correlate fo r possible pneumonia. Interstitial lung disease. Cardiomegaly. Correlate for possible pulmonary arter y hypertension, pulmonary venous hypertension and interstitial edema.
[2018-02-01] MEDS: LISINOPRIL 5 MG TAB PO SCH (08:54)
[2018-02-01] MEDS: APIXABAN 5 MG TAB PO SCH ×2 (08:54→20:09)
[2018-02-01] MEDS: METOPROLOL SUCCINATE (ER) 50 MG TAB.ER.24H PO SCH (08:54)
[2018-02-01] MEDS: DONEPEZIL 5 MG TAB PO SCH ×2 (08:54→20:09)
[2018-02-01] MEDS: PANTOPRAZOLE 40 MG TABLET PO SCH (08:54)
[2018-02-01] MEDS: AZITHROMYCIN 500 MG TAB PO SCH (08:55)
[2018-02-01] MEDS: cefTRIAXone IN SWFI 1,000 MG/10 ML SYRINGE IVP SCH (08:55)
[2018-02-01] MEDS: methylPREDNISolone SOD SUCCI 40 MG/ML 1 ML VIAL IV SCH ×2 (08:55→20:09)
[2018-02-01] MEDS: CHOLECALCIFEROL 1,000 UNIT TAB PO SCH ×2 (08:55→20:09)
[2018-02-01] MEDS: FLUoxetine HCL 20 MG CAP PO SCH (08:55)
[2018-02-01] MEDS: SYMBICORT 160-4.5 MCG INHALER INHALATION SCH ×2 (08:58→19:44)
[2018-02-01] MEDS: IPRATROPIUM-ALBUTEROL 3 ML NEB INHALATION SCH ×4 (08:58→19:44)
--- NOTE | 2018-02-01 11:31 | P.PN ---
Subjective Progress Note Date: 02/01/18 Principal diagnosis: Acute on chronic hypoxic respiratory failure secondary to an acute left lingular and basilar pneumonia, acute exacerbation of COPD. This is a very pleasant 77-year-old gentleman who follows with the [facility] for his primary care needs. He has a history of chronic atrial fibrillation anticoagulated with Eliquis, Parkinson's disease, anxiety/depression, hearing disorder, hypertension, coronary artery disease. 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 He follows with Dr. Corrales in our office for the same and was last seen there on 01/16/2018 in follow-up. At that time he was doing quite well here no worsening pulmonary complaints. Approximately 2 days ago he started feeling quite short of breath. He was coughing up some mucus that was blood-tinged and green. He developed a fever of 104. He presented here to the emergency room yesterday. CT angiogram was performed. There were no central pulmonary embolus. There were some equivocal subsegmental emboli of the right lower lobe. The patient again has been on Eliquis in the outpatient setting. There is also suspicious lingular and left basilar pneumonia. 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 There is focal area of pleural thickening along the anterior right lower lobe that could represent early mesothelioma. There is also noted multiple paraesophageal lymph nodes are considered nonspecific and possibly reactive though esophageal neoplasm could not be ruled out. Blood culture reveals no growth to date. White count 9.7. Hemoglobin 13.2. Creatinine 0.82. He had a T-max of 99.9. He is seen today in consultation on the selective care unit. He is awake and alert in no acute distress. He states he is already breathing a little better today as compared to the last 2 days. He is maintaining O2 saturations in the 90s on 5 L/m per nasal cannula. He's been afebrile today. Hemodynamically stable. Continues with a productive cough of green blood-tinged sputum. Sample is pending. He has been initiated on DuoNeb inhalations, Symbicort, IV Solu-Medrol, antibiotics in the form of ceftriaxone and azithromycin. The patient is seen again today 02/01/2018 in follow-up on the selective care unit. He is awake and alert in no acute distress. He is breathing a bit better today as compared to yesterday. He continues with a loose productive cough. No chills or night sweats. No hemoptysis. Sputum cultures pending. Continue to utilize 5 L/m per nasal cannula to maintain O2 saturations in the 90s. He's been hemodynamically stable. Count 13.6. Hemoglobin 12.5. Creatinine 0.78. A culture shows no growth thus far. He did have issues with hyperglycemia and his IV Solu-Medrol was decreased to 40 mg every 12 hours per medicine. Objective - Vital Signs Vital signs: Vital Signs Temp 97.0 F L 02/01/18 08:00 Pulse 76 02/01/18 09:13 Resp 18 02/01/18 08:00 BP 128/67 02/01/18 08:00 Pulse Ox 93 L 02/01/18 08:59 Intake & Output 01/31/18 02/01/18 02/01/18 18:59 06:59 18:59 Intake Total 1460 240 Balance 1460 240 Weight 123 kg Intake: Intake, IV Titration 250 Amount Azithromycin 500 mg In 250 Dextrose 5% in Water 250 ml @ 125 mls/hr IVPB DAILY [facility] Rx#:[id number] Oral 1210 240 Other: # Voids 2 2 - Exam - Constitutional General appearance: cooperative, obese - EENT Eyes: EOMI, PERRLA ENT: hard of hearing Ears: bilateral: normal - Neck Carotids: bilateral: upstroke normal Thyroid: bilateral: normal size - Respiratory Respiratory: bilateral: diminished, rales, rhonchi, prolonged expiration - Cardiovascular Rhythm: irregularly irregular Heart sounds: normal: S1, S2 - Gastrointestinal General gastrointestinal: normal bowel sounds - Integumentary Integumentary: decreased turgor - Neurologic Neurologic: CNII-XII intact - Musculoskeletal Musculoskeletal: generalized weakness - Psychiatric Psychiatric: A&O x's 3 - Labs CBC & Chem 7: 02/01/18 05:31 02/01/18 05:31 Labs: Abnormal Lab Results - Last 24 Hours (Table) 01/31/18 01/31/18 02/01/18 Range/Units 16:24 20:51 05:31 WBC 13.6 H (3.8-10.6) k/uL Hgb 12.5 L (13.0-17.5) gm/dL Neutrophils # 11.9 H (1.3-7.7) k/uL Lymphocytes # 0.6 L (1.0-4.8) k/uL BUN (9-20) mg/dL Glucose (74-99) mg/dL POC Glucose (mg/dL) 231 H 254 H (75-99) mg/dL 02/01/18 02/01/18 Range/Units 05:31 05:54 WBC (3.8-10.6) k/uL Hgb (13.0-17.5) gm/dL Neutrophils # (1.3-7.7) k/uL Lymphocytes # (1.0-4.8) k/uL BUN 22 H (9-20) mg/dL Glucose 213 H (74-99) mg/dL POC Glucose (mg/dL) 188 H (75-99) mg/dL Microbiology - Last 24 Hours (Table) 01/31/18 07:50 Gram Stain - Preliminary Sputum 01/30/18 10:33 Blood Culture - Preliminary Blood No Growth after 24 hours Assessment and Plan Assessment: Impression: #1 Acute on chronic hypoxic respiratory failure secondary to an acute left lingular and basilar pneumonia, acute exacerbation of chronic obstructive pulmonary disease. #2 Acute exacerbation of chronic obstructive pulmonary disease, complicated by left lower lobe pneumonia. Maintained on home oxygen at 4-4.5 L/m in the outpatient setting. #3 Obstructive sleep apnea maintained on CPAP at 13 cm of water in the outpatient setting. #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 There is also focal areas of pleural thickening along the anterior right lower lobe which could represent early mesothelioma. #5 Equivocal findings of subsegmental pulmonary emboli in the right lower lobe. The patient has been on Eliquis in the outpatient setting. #6 Multiple esophageal lymph nodes suspect nonspecific and reactive although esophageal neoplasm is not ruled out. #7 Chronic atrial fibrillation, anticoagulated with Eliquis in outpatient setting. #8 Coronary artery disease. #9 Parkinson's disease. #10 Hypertension. #11 Obesity. #12 Poor overall functional performance based on the above-mentioned multiple comorbidities. Plan: The patient was seen and evaluated by Dr. Goodwin. Chest x-ray and labs reviewed. We'll continue with this treatment for acute left lung pneumonia including antibiotics in the form of Rocephin and azithromycin. Check a Legionella antigen. Await sputum culture results. Continue DuoNeb inhalations , IV Solu-Medrol, Symbicort. We will increase his activity as tolerated. We'll continue to follow and make further recommendations based on his clinical status. I, the cosigning physician, performed a history & physical examination of the patient. Lungs sounds with few scattered rhonchi, end expiratory wheeze. Diminished. Maintaining good O2 saturations in the 90s on 5 L/m per nasal cannula. I discussed the assessment and plan of care with my nurse practitioner , Divine Ocasio. I attest to the above note as dictated by her.
[2018-02-01 11:39] LABS: Glucose,Whole Blood 151 mg/dL (75-99)
[2018-02-01] MEDS: MULTIVITAMINS, THERA 1 EACH TAB PO SCH (12:39)
[2018-02-01 16:43] LABS: Glucose,Whole Blood 286 mg/dL (75-99)
--- NOTE | 2018-02-01 17:12 | PN ---
PROGRESS NOTE DATE OF SERVICE: 02/01/2018 INTERVAL HISTORY: This 77-year-old gentleman who was admitted with COPD acute exacerbation also had a possible right pulmonary embolism. Patient is being closely monitored. No chest pain. No palpitations. Pulmonary is following the patient closely. Eliquis dose was increased. PHYSICAL EXAM: Alert and oriented times three. Pulse 63, blood pressure 112/59, respiration 18, temperature 97.2, pulse ox 98% on 5 L. HEENT: Conjunctivae normal. Oral mucosa moist. Neck is no jugular venous distention. No carotid bruit. No lymph node enlargement. Cardiovascular System: S1, S2 muffled. RESPIRATION: Breath sounds diminished in the bases. Bilateral scattered rhonchi and crackles. ABDOMEN: Soft, obese, nontender. LEGS: No edema, no swelling. CENTRAL NERVOUS SYSTEM: No focal deficits. LABS: WBC 13.2, hemoglobin 12.5, Accu-Cheks are 213, 188, 151. ASSESSMENT: 1. Chronic obstructive pulmonary disease acute exacerbation with acute left lingular pneumonia possibly gram-negative. 2. Possible right pulmonary embolism. 3. On high-dose Eliquis currently. 4. History of deep vein thrombosis of the leg. 5. History of coronary artery disease. 6. Chronic obstructive pulmonary disease. 7. Dementia. 8. Hard of hearing. 9. Hypertension. 10.Obesity. 11.Sleep apnea. 12.History of Parkinson's. 13.History of asbestosis and pleural plaques. 14.History of coronary artery disease/stent. 15.History of sleep apnea, CPAP. 16.Chronic hypoxic respiratory failure. 17.Anxiety/depression. 18.History of atrial fibrillation. RECOMMENDATIONS AND DISCUSSION: In this 77-year-old gentleman who presented with multiple complex medical issues , we will monitor the patient closely. Continue the current medications, management and symptomatic treatment. Otherwise at this time, I recommend bronchodilators, empiric antibiotics. Closely follow with Pulmonary and Cardiology. The patient is still on IV steroids. We will continue to monitor. If the patient is making significant improvement, the patient may be discharged in 24-48 hours after clearance from Pulmonary. Further recommendations to follow. MMODL / IJN: [id number] / MTDD
[2018-02-01] MEDS: ATORVASTATIN 80 MG TAB PO SCH (20:09)
[2018-02-01 21:43] LABS: Glucose,Whole Blood 275 mg/dL (75-99)
[2018-02-02 07:06] LABS: Glucose,Whole Blood 167 mg/dL (75-99)
[2018-02-02 07:10] VITALS: BP 138/79; TEMP 97.6
[2018-02-02] MEDS: FLUoxetine HCL 20 MG CAP PO SCH (07:41)
[2018-02-02] MEDS: CHOLECALCIFEROL 1,000 UNIT TAB PO SCH (07:41)
[2018-02-02] MEDS: LISINOPRIL 5 MG TAB PO SCH (07:41)
[2018-02-02] MEDS: APIXABAN 5 MG TAB PO SCH (07:41)
[2018-02-02] MEDS: PANTOPRAZOLE 40 MG TABLET PO SCH (07:42)
[2018-02-02] MEDS: DONEPEZIL 5 MG TAB PO SCH (07:42)
[2018-02-02] MEDS: AZITHROMYCIN 500 MG TAB PO SCH (07:42)
[2018-02-02] MEDS: METOPROLOL SUCCINATE (ER) 50 MG TAB.ER.24H PO SCH (07:42)
[2018-02-02] MEDS: methylPREDNISolone SOD SUCCI 40 MG/ML 1 ML VIAL IV SCH (07:42)
[2018-02-02] MEDS: INSULIN ASPART 100 UNIT/ML 1 ML 10 ML VIAL SQ SCH ×2 (07:49→12:04)
[2018-02-02 08:23] LABS: Basophils % (A) 0 %; Eosinophils % (A) 0 %; HGB 13.3 gm/dL (13.0-17.5); Lymphocytes # (A) 0.9 k/uL (1.0-4.8); Lymphocytes % (A) 7 %; MCH 28.3 pg (25.0-35.0); MCHC 32.4 g/dL (31.0-37.0); MCV 87.5 fL (80.0-100.0); Mean Platelet Volume 7.3; Monocytes # (A) 0.8 k/uL (0-1.0); Monocytes % (A) 6 %; Neutrophils # (A) 11.4 k/uL (1.3-7.7); Neutrophils % (A) 84 %; Platelet Count 223 k/uL (150-450); RBC 4.69 m/uL (4.30-5.90); RDW 14.7 % (11.5-15.5); WBC 13.6 k/uL (3.8-10.6)
[2018-02-02 08:54] LABS: Anion Gap 7 mmol/L; Blood Urea Nitrogen 20 mg/dL (9-20); Calcium 8.8 mg/dL (8.4-10.2); Carbon Dioxide 27 mmol/L (22-30); Chloride 104 mmol/L (98-107); Glucose 154 mg/dL (74-99); Potassium 4.9 mmol/L (3.5-5.1); Sodium 138 mmol/L (137-145)
[2018-02-02] MEDS: SYMBICORT 160-4.5 MCG INHALER INHALATION SCH (09:00)
[2018-02-02] MEDS: IPRATROPIUM-ALBUTEROL 3 ML NEB INHALATION SCH ×3 (09:00→15:57)
[2018-02-02] MEDS: cefTRIAXone IN SWFI 1,000 MG/10 ML SYRINGE IVP SCH (10:06)
[2018-02-02] MEDS: MULTIVITAMINS, THERA 1 EACH TAB PO SCH (12:06)
[2018-02-02 12:12] LABS: Glucose,Whole Blood 169 mg/dL (75-99)
[2018-02-02 12:15] VITALS: PULSE 60
--- NOTE | 2018-02-02 13:46 | P.PN ---
Subjective Progress Note Date: 02/02/18 Principal diagnosis: Acute on chronic hypoxic respiratory failure significant acute left lingular and basilar pneumonia This is a very pleasant 77-year-old gentleman who follows with the [facility] for his primary care needs. He has a history of chronic atrial fibrillation anticoagulated with Eliquis, Parkinson's disease, anxiety/depression, hearing disorder, hypertension, coronary artery disease. 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 He follows with Dr. Corrales in our office for the same and was last seen there on 01/16/2018 in follow-up. At that time he was doing quite well here no worsening pulmonary complaints. Approximately 2 days ago he started feeling quite short of breath. He was coughing up some mucus that was blood-tinged and green. He developed a fever of 104. He presented here to the emergency room yesterday. CT angiogram was performed. There were no central pulmonary embolus. There were some equivocal subsegmental emboli of the right lower lobe. The patient again has been on Eliquis in the outpatient setting. There is also suspicious lingular and left basilar pneumonia. 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 There is focal area of pleural thickening along the anterior right lower lobe that could represent early mesothelioma. There is also noted multiple paraesophageal lymph nodes are considered nonspecific and possibly reactive though esophageal neoplasm could not be ruled out. Blood culture reveals no growth to date. White count 9.7. Hemoglobin 13.2. Creatinine 0.82. He had a T-max of 99.9. He is seen today in consultation on the selective care unit. He is awake and alert in no acute distress. He states he is already breathing a little better today as compared to the last 2 days. He is maintaining O2 saturations in the 90s on 5 L/m per nasal cannula. He's been afebrile today. Hemodynamically stable. Continues with a productive cough of green blood-tinged sputum. Sample is pending. He has been initiated on DuoNeb inhalations, Symbicort, IV Solu-Medrol, antibiotics in the form of ceftriaxone and azithromycin. The patient is seen again today 02/01/2018 in follow-up on the selective care unit. He is awake and alert in no acute distress. He is breathing a bit better today as compared to yesterday. He continues with a loose productive cough. No chills or night sweats. No hemoptysis. Sputum cultures pending. Continue to utilize 5 L/m per nasal cannula to maintain O2 saturations in the 90s. He's been hemodynamically stable. Count 13.6. Hemoglobin 12.5. Creatinine 0.78. A culture shows no growth thus far. He did have issues with hyperglycemia and his IV Solu-Medrol was decreased to 40 mg every 12 hours per medicine. On 02/02/2018 patient seen in follow-up on medical surgical floor. He is feeling much better today, denies any distress, afebrile, vital signs are stable , pulse ox on 4 L per nasal cannula is 90%. Denies any dyspnea, denies any chest congestion, denies any chest wall tenderness. He has been ambulating in the hallway with portable oxygen, tolerating activity well. Sputum and blood cultures remain negative, it is lab work shows WBC of 13.6 hemoglobin of 13.3, exercise and renal profile are within normal limits. She is on combination of Rocephin and Zithromax, and IV steroids, and he is feeling more energetic, and is hoping to be able to go home today. We will obtain a repeat chest x-ray today, patient could potentially be discharged home today, if there is improvement on the chest x-ray. Objective - Vital Signs Vital signs: Vital Signs Temp 97.6 F 02/02/18 05:56 Pulse 60 02/02/18 12:28 Resp 18 02/02/18 05:56 BP 138/79 02/02/18 05:56 Pulse Ox 90 L 02/02/18 10:32 Intake & Output 02/01/18 02/02/18 02/02/18 18:59 06:59 18:59 Intake Total 960 1140 360 Output Total 300 Balance 960 840 360 Weight 123 kg Intake: Oral 960 1140 360 Output: Urine 300 Other: Voiding Method Toilet # Voids 1 1 - Exam - Constitutional General appearance: cooperative, obese - EENT Eyes: EOMI, PERRLA ENT: hard of hearing Ears: bilateral: normal - Neck Carotids: bilateral: upstroke normal Thyroid: bilateral: normal size - Respiratory Respiratory: bilateral: diminished, no wheezes, no rales, no rhonchi appreciated - Cardiovascular Rhythm: irregularly irregular Heart sounds: normal: S1, S2 - Gastrointestinal General gastrointestinal: normal bowel sounds - Integumentary Integumentary: decreased turgor - Neurologic Neurologic: CNII-XII intact - Musculoskeletal Musculoskeletal: generalized weakness - Psychiatric Psychiatric: A&O x's 3 - Labs CBC & Chem 7: 02/02/18 08:00 02/02/18 08:00 Labs: Abnormal Lab Results - Last 24 Hours (Table) 02/01/18 02/01/18 02/02/18 Range/Units 16:41 21:40 07:03 WBC (3.8-10.6) k/uL Neutrophils # (1.3-7.7) k/uL Lymphocytes # (1.0-4.8) k/uL Glucose (74-99) mg/dL POC Glucose (mg/dL) 286 H 275 H 167 H (75-99) mg/dL 02/02/18 02/02/18 02/02/18 Range/Units 08:00 08:00 12:01 WBC 13.6 H (3.8-10.6) k/uL Neutrophils # 11.4 H (1.3-7.7) k/uL Lymphocytes # 0.9 L (1.0-4.8) k/uL Glucose 154 H (74-99) mg/dL POC Glucose (mg/dL) 169 H (75-99) mg/dL Microbiology - Last 24 Hours (Table) 01/30/18 10:33 Blood Culture - Preliminary Blood No Growth after 72 hours 01/31/18 07:50 Gram Stain - Final Sputum Sputum Culture - Final Assessment and Plan Plan: Assessment: #1 Acute on chronic hypoxic respiratory failure secondary to an acute left lingular and basilar pneumonia, acute exacerbation of chronic obstructive pulmonary disease. #2 Acute exacerbation of chronic obstructive pulmonary disease, complicated by left lower lobe pneumonia. Maintained on home oxygen at 4-4.5 L/m in the outpatient setting. #3 Obstructive sleep apnea maintained on CPAP at 13 cm of water in the outpatient setting. #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 There is also focal areas of pleural thickening along the anterior right lower lobe which could represent early mesothelioma. #5 Equivocal findings of subsegmental pulmonary emboli in the right lower lobe. The patient has been on Eliquis in the outpatient setting. #6 Multiple esophageal lymph nodes suspect nonspecific and reactive although esophageal neoplasm is not ruled out. #7 Chronic atrial fibrillation, anticoagulated with Eliquis in outpatient setting. #8 Coronary artery disease. #9 Parkinson's disease. #10 Hypertension. #11 Obesity. #12 Poor overall functional performance based on the above-mentioned multiple comorbidities. Plan: We'll obtain a repeat chest x-ray, clinically patient is feeling much better, in terms of dyspnea, chest congestion, there have been no fevers, no chills, patient is ambulating, and tolerating activity well. Cultures remain negative. Patient has been treated with a combination of Rocephin and azithromycin, and is improving. Is hoping to be able to go home today, will review his chest x- ray, patient potentially could be considered for discharge pending the results of his chest x-ray. I performed a history & physical examination of the patient and discussed their management with my nurse practitioner, Evelyn Doan. I reviewed the nurse practitioner's note and agree with the documented findings and plan of care. Lung sounds are diminished, no wheezes, no rhonchi, no rales appreciated. The findings and the impression was discussed with the patient. I attest to the documentation by the nurse practitioner. Time with Patient: Less than 30
--- NOTE | 2018-02-02 15:56 | XR ---
EXAMINATION TYPE: XR chest 2V DATE OF EXAM: 02/02/2018 COMPARISON: Prior chest 02/01/2018 HISTORY: Follow-up pneumonia TECHNIQUE: Frontal and lateral views of the chest are obtained. FINDINGS: Calcified pleural plaques are again seen. Interstitium is increased. Cardiac mediastinal s ilhouette, pulmonary vascularity and marixa are stable. No pneumothorax or pleural effusion. Bilateral nodularity noted within the lungs. IMPRESSION: Correlate to exclude pulmonary venous hypertension and interstitial edema. Asbestos rela radha disease.
== END 2018-02-02 16:47 | disposition home or self-care (01) | DRG 177 ==
LOC: EC 09:36 → 6SEL 12:36 → 4MS4W 02-02 02:34
PROVIDERS: ADMIT Hospitalist; ATTEND Hospitalist
DX: J15.6 Pneumonia due to other Gram-negative bacteria (principal); I26.99 Other pulmonary embolism without acute cor pulmonale; J96.21 Acute and chronic respiratory failure with hypoxia; J44.0 Chronic obstructive pulmonary disease with (acute) lower respiratory infection; J44.1 Chronic obstructive pulmonary disease with (acute) exacerbation; E66.9 Obesity, unspecified; F03.90 Unspecified dementia, unspecified severity, without behavioral disturbance, psychotic disturbance, mood disturbance, and anxiety; F32.9 Major depressive disorder, single episode, unspecified; F41.9 Anxiety disorder, unspecified; G20 Parkinson's disease; G47.33 Obstructive sleep apnea (adult) (pediatric); H91.90 Unspecified hearing loss, unspecified ear; I10 Essential (primary) hypertension; I25.10 Atherosclerotic heart disease of native coronary artery without angina pectoris; I48.2 Chronic atrial fibrillation; Z86.73 Personal history of transient ischemic attack (TIA), and cerebral infarction without residual deficits; J92.0 Pleural plaque with presence of asbestos; Z77.090 Contact with and (suspected) exposure to asbestos; Z79.01 Long term (current) use of anticoagulants; Z79.51 Long term (current) use of inhaled steroids; Z79.899 Other long term (current) drug therapy; Z80.0 Family history of malignant neoplasm of digestive organs; Z80.1 Family history of malignant neoplasm of trachea, bronchus and lung; Z83.3 Family history of diabetes mellitus; Z86.718 Personal history of other venous thrombosis and embolism; Z87.891 Personal history of nicotine dependence; Z95.5 Presence of coronary angioplasty implant and graft; Z99.81 Dependence on supplemental oxygen; Z68.38 Body mass index [BMI] 38.0-38.9, adult; T38.0X5A Adverse effect of glucocorticoids and synthetic analogues, initial encounter; R73.9 Hyperglycemia, unspecified
CPT/HCPCS: 36415; 71045; 71046; 71275; 80048; 80053; 81003; 82550; 82553; 83036; 83735; 84484; 85025; 85610; 85730; 87040; 87070; 87205; 87449; 93005; 94640; 94667; 94760; 96365; 96375; 99285